=== PATIENT | male | born 1995 | race Hispanic/Latino ===

== ENCOUNTER 2018-03-06 05:00 | Emergency (ER) | payer BC, OTHER ==
[2018-03-06] MEDS ORDERED: METHYLPREDNISOLONE 125 MG INJ ONE (05:22)
--- NOTE | 2018-03-06 05:25 | EDPHYS ---
Physician Documentation [facility] Name: Clarence Chaudhary Age: 22 yrs Sex: Male : 1995 Arrival Date: 03/06/2018 Time: 05:03 Bed 14 Private MD: Fredo Lemus ED Physician Louie Burnham HPI: 03/06 05:20 This 22 yrs old Male presents to ER via Unassigned with complaints of Allergic rn Reaction. 05:20 The patient presents with localized swelling. Onset: The symptoms/episode rn began/occurred yesterday. Associated signs and symptoms: Pertinent positives: swelling, Pertinent negatives: abdominal pain, Altered mental status chest pain, dysphagia, hives, shortness of breath, vomiting. Possible causes: hair dye. Severity of symptoms: At their worst the symptoms were moderate in the emergency department the symptoms are unchanged. The patient has not experienced similar symptoms in the past. Reports used hair dye on Tuesday, began itching and then yesterday noticed swelling of both eyes, no sob/trouble swallowing/abd pain. Has had localized itching to hair dye before but never swelling like this. No other new exposure.. Historical: - Allergies: 05:14 No Known Drug Allergies; jb4 - Home Meds: 05:14 None [Active]; jb4 - PMHx: 05:14 None; jb4 - PSHx: 05:14 None; jb4 - Immunization history:: Adult Immunizations up to date, Flu vaccine is up to date. - Social history:: Smoking status: Patient/guardian denies using tobacco, Patient uses alcohol, only on a social basis. - Family history:: not pertinent. - Ebola Screening: : No symptoms or risks identified at this time. - Hospitalizations: : No recent hospitalization is reported. 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 Exam: 05:20 Constitutional: This is a well developed, well nourished patient who is awake, alert, rn and in no acute distress. Head/Face: atraumatic. Eyes: + bilateral periorbital swelling, no erythema, no warmth, no lesions ENT: MMM, no stridor Cardiovascular: Regular rate and rhythm with a normal S1 and S2. No gallops, murmurs, or rubs. Normal PMI, no JVD. No pulse deficits. Respiratory: Lungs have equal breath sounds bilaterally, clear to auscultation and percussion. No rales, rhonchi or wheezes noted. No increased work of breathing, no retractions or nasal flaring. Skin: Warm, dry with normal turgor. Normal color with no rashes, no lesions, and no evidence of cellulitis. MS/ Extremity: Pulses equal, no cyanosis. Neurovascular intact. Full, normal range of motion. Equal circumference. Neuro: Awake and alert, GCS 15, oriented to person, place, time, and situation. Cranial nerves II-XII grossly intact. Motor strength 5/5 in all extremities. Sensory grossly intact. Cerebellar exam normal. Normal gait. Vital Signs: 05:14 BP 137 / 94; Pulse 67; Resp 18; Temp 98.2; Pulse Ox 98% on R/A; Weight 93.44 kg (R); jb4 Height 5 ft. 6 in. (167.64 cm) (R); 05:14 Body Mass Index 33.25 (93.44 kg, 167.64 cm) jb4 MDM: 05:05 Patient medically screened. rn 05:20 Differential diagnosis: angioedema, local allergic reaction. Data reviewed: vital rn signs, nurses notes, and as a result, I will discharge patient. Counseling: I had a detailed discussion with the patient and/or guardian regarding: the historical points, exam findings, and any diagnostic results supporting the discharge/admit diagnosis, the need for outpatient follow up, to return to the emergency department if symptoms worsen or persist or if there are any questions or concerns that arise at home. Response to treatment: the patient's symptoms have mildly improved after treatment. Special discussion: I discussed with the patient/guardian in detail that at this point there is no indication for admission to the hospital. It is understood, however, that if the symptoms persist or worsen the patient needs to return immediately for re-evaluation. Administered Medications: 05:22 Drug: SOLU-Medrol 125 mg Route: IM; Site: right gluteus; jb4 06:10 Follow up: Response: No adverse reaction; No change in condition jb4 05:43 Drug: Benadryl 50 mg Route: IM; Site: right deltoid; jb4 06:10 Follow up: Response: No adverse reaction; No change in condition jb4 Disposition: 03/06/18 05:24 Discharged to Home. Impression: Acute allergic reaction (to hair dye). - Condition is Stable. - Discharge Instructions: Angioedema. - Prescriptions for Prednisone 20 mg Oral Tablet - take 3 tablet by ORAL route once daily for 5 days; 15 tablet. - Medication Reconciliation Form, Thank You Letter, Antibiotic Education, Prescription Opioid Use form. - Work release form (03/06/18 08:13). bd - Follow up: Private Physician; When: As needed; Reason: Recheck today's complaints, Re-evaluation by your physician. - Problem is new. - Symptoms have improved. Signatures: Louie Burnham MD MD rn Bryson, James, RN RN jb4 Dirrim, Barbara bd Corrections: (The following items were deleted from the chart) 06:06 05:24 03/06/2018 05:24 Discharged to Home. Impression: Acute allergic reaction (to hair jb4 dye). Condition is Stable. Forms are Medication Reconciliation Form, Thank You Letter, Antibiotic Education, Prescription Opioid Use. Follow up: Private Physician; When: As needed; Reason: Recheck today's complaints, Re-evaluation by your physician. Problem is new. Symptoms have improved. rn
--- NOTE | 2018-03-06 05:25 | ER ---
Nurse's Notes [facility] Name: Clarence Chaudhary Age: 22 yrs Sex: Male : 1995 Arrival Date: 03/06/2018 Time: 05:03 Bed 14 Private MD: Fredo Lemus Diagnosis: Acute allergic reaction (to hair dye) Presentation: 03/06 05:14 Presenting complaint: Patient states: I dyed my hair on Tuesday, noticed it had started jb4 itching on Tuesday and now it has progressed to my eyes which are now swollen. Transition of care: patient was not received from another setting of care. Onset: The symptoms/episode began/occurred suddenly. 05:14 Method Of Arrival: Ambulatory jb4 05:14 Anaphylaxis evaluation, no signs or symptoms of anaphylaxis were noted. Onset of jb4 symptoms was March 06, 2018. Risk Assessment: Do you want to hurt yourself or someone else? Patient reports no desire to harm self or others. Initial Sepsis Screen: Does the patient meet any 2 criteria? No. Patient's initial sepsis screen is negative. Care prior to arrival: None. 05:14 Acuity: YEMI 3 jb4 06:06 Initial Sepsis Screen: Does the patient have a suspected source of infection? No. jb4 Patient's initial sepsis screen is negative. Triage Assessment: 05:14 General: Appears in no apparent distress. uncomfortable, Behavior is calm, cooperative. jb4 Pain: Denies pain. EENT: Eyes swollen. Neuro: Level of Consciousness is awake, alert, obeys commands, Oriented to person, place, time, situation. Cardiovascular: Patient's skin is warm and dry. Respiratory: Airway is patent Respiratory effort is even, unlabored, Respiratory pattern is regular, symmetrical, Breath sounds are clear bilaterally. GI: No signs and/or symptoms were reported involving the gastrointestinal system. : No signs and/or symptoms were reported regarding the genitourinary system. Derm: Skin is intact, Skin is pink, warm \T\ dry. rash noted to the upper back. Musculoskeletal: Circulation, motion, and sensation intact. Historical: - Allergies: 05:14 No Known Drug Allergies; jb4 - Home Meds: 05:14 None [Active]; jb4 - PMHx: 05:14 None; jb4 - PSHx: 05:14 None; jb4 - Immunization history:: Adult Immunizations up to date, Flu vaccine is up to date. - Social history:: Smoking status: Patient/guardian denies using tobacco, Patient uses alcohol, only on a social basis. - Family history:: not pertinent. - Ebola Screening: : No symptoms or risks identified at this time. - Hospitalizations: : No recent hospitalization is reported. Screenin:35 Abuse screen: Denies threats or abuse. Nutritional screening: No deficits noted. jb4 Tuberculosis screening: No symptoms or risk factors identified. Fall Risk None identified. Assessment: 05:35 General: see triage assessment . Respiratory: Airway is patent Respiratory effort is jb4 even, unlabored, Respiratory pattern is regular, symmetrical, Breath sounds are clear bilaterally. Vital Signs: 05:14 BP 137 / 94; Pulse 67; Resp 18; Temp 98.2; Pulse Ox 98% on R/A; Weight 93.44 kg (R); jb4 Height 5 ft. 6 in. (167.64 cm) (R); 05:14 Body Mass Index 33.25 (93.44 kg, 167.64 cm) jb4 ED Course: 05:03 Patient arrived in ED. es 05:03 Fredo Lemus MD is Private Physician. es 05:05 Louie Burnham MD is Attending Physician. rn 05:13 Fredo Sanchez RN is Primary Nurse. jb4 05:14 Arm band placed on right wrist. jb4 05:28 Triage completed. jb4 05:35 Patient has correct armband on for positive identification. Placed in gown. Bed in low jb4 position. Call light in reach. Side rails up X 1. Pulse ox on. NIBP on. 05:35 No provider procedures requiring assistance completed. Patient did not have IV access jb4 during this emergency room visit. Administered Medications: 05:22 Drug: SOLU-Medrol 125 mg Route: IM; Site: right gluteus; jb4 06:10 Follow up: Response: No adverse reaction; No change in condition jb4 05:43 Drug: Benadryl 50 mg Route: IM; Site: right deltoid; jb4 06:10 Follow up: Response: No adverse reaction; No change in condition jb4 Outcome: 05:24 Discharge ordered by . rn 06:06 Discharged to home ambulatory. jb4 06:06 Condition: stable 06:06 Discharge instructions given to patient, Instructed on discharge instructions, follow up and referral plans. medication usage, Demonstrated understanding of instructions, follow-up care, medications, Prescriptions given X 1. 06:06 Patient left the ED. jb4 Signatures: Laurie Casper Roman, MD MD rn Bryson, James, RN RN jb4
[2018-03-06] MEDS ORDERED: DIPHENHYDRAMINE 50 MG/ML VIAL ONE (05:35)
== END 2018-03-06 06:06 | disposition home or self-care (01) ==
LOC: ER 05:00
DX: L23.4 Allergic contact dermatitis due to dyes (principal)
CPT/HCPCS: 96372; 99283; J2930

== ENCOUNTER 2018-12-28 08:57 | Emergency (ER) | payer BC, SELFPAY ==
--- OUTSIDE RECORDS SUMMARY | 2018-12-28 08:59 | XMS REPORT ---
:1995 [facility] Address [address] [place] [address] Dr. Antonio [address] [place] [id number] Care Team Providers Name Role Phone Unavailable Unavailable Unavailable Problems This patient has no known problems. Allergies, Adverse Reactions, Alerts This patient has no known allergies or adverse reactions. Medications This patient has no known medications.
--- NOTE | 2018-12-28 10:28 | ER ---
Nurse's Notes [facility] Name: Clarence Chaudhary Age: 23 yrs Sex: Male : 1995 Arrival Date: 12/28/2018 Time: 08:58 Bed 18 Private MD: Diagnosis: Acute pharyngitis;Otitis media, unspecified, left ear Presentation: 12/28 09:20 Presenting complaint: Patient states: sore throat X 2 weeks, left tonsil swollen, left iw ear pain, fever last night, vomited last night. Transition of care: patient was not received from another setting of care. Onset of symptoms was December 14, 2018. Risk Assessment: Do you want to hurt yourself or someone else? Patient reports no desire to harm self or others. Initial Sepsis Screen: Does the patient meet any 2 criteria? No. Patient's initial sepsis screen is negative. Does the patient have a suspected source of infection? No. Patient's initial sepsis screen is negative. Care prior to arrival: None. 09:20 Method Of Arrival: Ambulatory iw 09:20 Acuity: YEMI 4 iw Historical: - Allergies: 09:26 No Known Allergies; iw - Home Meds: 09:26 None [Active]; iw - PMHx: 09:26 None; iw - PSHx: 09:26 None; iw - Immunization history:: Adult Immunizations not up to date. - Social history:: Smoking status: Patient uses tobacco products, smokes one-half pack cigarettes per day. - Ebola Screening: : Patient negative for fever greater than or equal to 101.5 degrees Fahrenheit, and additional compatible Ebola Virus Disease symptoms Patient denies exposure to infectious person Patient denies travel to an Ebola-affected area in the 21 days before illness onset No symptoms or risks identified at this time. Screenin:49 Abuse screen: Denies threats or abuse. Denies injuries from another. Nutritional ph screening: No deficits noted. Tuberculosis screening: No symptoms or risk factors identified. Fall Risk None identified. Assessment: 09:46 General: Appears in no apparent distress. uncomfortable, well groomed, Behavior is ph calm, cooperative, appropriate for age, Reports fever for 12-24 hours. Pain: Complains of pain in throat. Neuro: Level of Consciousness is awake, alert, obeys commands, Oriented to person, place, time, situation. Cardiovascular: Capillary refill < 3 seconds in bilateral fingers Patient's skin is warm and dry. Respiratory: Airway is patent Respiratory effort is even, unlabored, Respiratory pattern is regular, symmetrical, Breath sounds are clear bilaterally. GI: Reports nausea, vomiting, Patient currently denies abdominal pain. EENT: Throat is reddened has enlarged tonsils on left Reports pain when swallowing. Derm: Skin is intact, is healthy with good turgor, Skin is pink, warm \T\ dry. Musculoskeletal: Circulation, motion, and sensation intact. Range of motion: intact in all extremities. 11:00 Reassessment: Patient appears in no apparent distress at this time. Patient and/or ph family updated on plan of care and expected duration. Pain level reassessed. Patient is alert, oriented x 3, equal unlabored respirations, skin warm/dry/pink. Pt d/c home w/ SO. Vital Signs: 09:27 BP 118 / 93; Pulse 104; Resp 18 S; Temp 99.1(TE); Pulse Ox 100% on R/A; Weight 91.17 kg iw (M); Height 5 ft. 6 in. (167.64 cm); Pain 7/10; 11:00 BP 123 / 86; Pulse 100; Resp 18; Temp 98.7; Pulse Ox 99% on R/A; ph 09:27 Body Mass Index 32.44 (91.17 kg, 167.64 cm) iw ED Course: 08:58 Patient arrived in ED. as 09:19 Everett Funes NP is PHCP. pm1 09:19 Walker Lugo MD is Attending Physician. pm1 09:24 Triage completed. iw 09:27 Arm band placed on. iw 09:30 Lilliam Jarvis, JEAN-CLAUDE is Primary Nurse. ph 09:50 No provider procedures requiring assistance completed. Patient did not have IV access ph during this emergency room visit. 09:50 Strep swab sent to lab. ph 09:51 Patient has correct armband on for positive identification. Bed in low position. Call ph light in reach. Side rails up X 1. Administered Medications: 10:48 Drug: Decadron 10 mg Route: IM; Site: right deltoid; ph 11:00 Follow up: Response: No adverse reaction ph Outcome: 10:27 Discharge ordered by . pm1 11:01 Discharged to home ambulatory, with significant other. ph 11:01 Condition: good 11:01 Discharge instructions given to patient, significant other, Instructed on discharge instructions, follow up and referral plans. medication usage, Demonstrated understanding of instructions, follow-up care, medications, Prescriptions given X 1. 11:01 Patient left the ED. ph Signatures: Padma Colbert Irene, RN RN Lilliam Jarvis RN RN ph Everett Funes, LINSEED OIL BOILER LINSEED OIL BOILER pm1
--- NOTE | 2018-12-28 10:28 | EDPHYS ---
Physician Documentation [facility] Name: Clarence Chaudhary Age: 23 yrs Sex: Male : 1995 Arrival Date: 12/28/2018 Time: 08:58 Bed 18 Private MD: ED Physician Walker Lugo HPI: 12/28 10:25 This 23 yrs old Male presents to ER via Ambulatory with complaints of Sore pm1 Throat, Fever, Ear Pain. 10:25 The patient presents with sore throat. The patient describes throat pain as constant, pm1 scratchy. Onset: The symptoms/episode began/occurred 2 week(s) ago. Severity of symptoms: in the emergency department the symptoms are unchanged. Modifying factors: The symptoms are alleviated by nothing, the symptoms are aggravated by foods, swallowing, Patient's oral intake status: good. Associated signs and symptoms: Pertinent positives: fever, left ear pain, Pertinent negatives cough, earache, flu-like symptoms, headache. The patient has not recently seen a physician. Historical: - Allergies: 09:26 No Known Allergies; iw - Home Meds: 09:26 None [Active]; iw - PMHx: 09:26 None; iw - PSHx: 09:26 None; iw - Immunization history:: Adult Immunizations not up to date. - Social history:: Smoking status: Patient uses tobacco products, smokes one-half pack cigarettes per day. - Ebola Screening: : Patient negative for fever greater than or equal to 101.5 degrees Fahrenheit, and additional compatible Ebola Virus Disease symptoms Patient denies exposure to infectious person Patient denies travel to an Ebola-affected area in the 21 days before illness onset No symptoms or risks identified at this time. ROS: 10:25 Eyes: Negative for injury, pain, redness, and discharge, Neck: Negative for injury, pm1 pain, and swelling, Cardiovascular: Negative for chest pain, palpitations, and edema. 10:25 Respiratory: Negative for shortness of breath, cough, wheezing, and pleuritic chest pain, Abdomen/GI: Negative for abdominal pain, nausea, vomiting, diarrhea, and constipation, Back: Negative for injury and pain, : Negative for injury, bleeding, discharge, and swelling, MS/Extremity: Negative for injury and deformity, Skin: Negative for injury, rash, and discoloration, Neuro: Negative for headache, weakness, numbness, tingling, and seizure. 10:25 Constitutional: Positive for fever, Negative for body aches, poor PO intake. 10:25 ENT: Positive for ear pain, sore throat, Negative for drainage from ear(s). Exam: 10:25 Constitutional: This is a well developed, well nourished patient who is awake, alert, pm1 and in no acute distress. Head/Face: Normocephalic, atraumatic. 10:25 Neck: Trachea midline, no thyromegaly or masses palpated, and no cervical lymphadenopathy. Supple, full range of motion without nuchal rigidity, or vertebral point tenderness. No Meningismus. Chest/axilla: Normal chest wall appearance and motion. Nontender with no deformity. No lesions are appreciated. Cardiovascular: Regular rate and rhythm with a normal S1 and S2. No gallops, murmurs, or rubs. Normal PMI, no JVD. No pulse deficits. Respiratory: Lungs have equal breath sounds bilaterally, clear to auscultation and percussion. No rales, rhonchi or wheezes noted. No increased work of breathing, no retractions or nasal flaring. Abdomen/GI: Soft, non-tender, with normal bowel sounds. No distension or tympany. No guarding or rebound. No evidence of tenderness throughout. Back: No spinal tenderness. No costovertebral tenderness. Full range of motion. Skin: Warm, dry with normal turgor. Normal color with no rashes, no lesions, and no evidence of cellulitis. MS/ Extremity: Pulses equal, no cyanosis. Neurovascular intact. Full, normal range of motion. 10:25 ENT: External ear(s): are unremarkable, Ear canal(s): are normal, TM's: erythema, that is mild, on the left, Examination of the other ear shows no obvious abnormality, Nose: is normal, Mouth: is normal, no gum abnomalities, no lip abnormalities, no mucosal abnormalities, no tongue abnormalities, Posterior pharynx: is normal, airway is patent, peritonsillar mass, is not appreciated. 10:25 Neuro: Orientation: is normal, Motor: is normal, moves all fours. Vital Signs: 09:27 BP 118 / 93; Pulse 104; Resp 18 S; Temp 99.1(TE); Pulse Ox 100% on R/A; Weight 91.17 kg iw (M); Height 5 ft. 6 in. (167.64 cm); Pain 7/10; 11:00 BP 123 / 86; Pulse 100; Resp 18; Temp 98.7; Pulse Ox 99% on R/A; ph 09:27 Body Mass Index 32.44 (91.17 kg, 167.64 cm) iw MDM: 09:27 Patient medically screened. pm1 10:25 Data reviewed: vital signs. Data interpreted: Pulse oximetry: on room air is 100 %. pm1 Interpretation: normal. Counseling: I had a detailed discussion with the patient and/or guardian regarding: the historical points, exam findings, and any diagnostic results supporting the discharge/admit diagnosis, lab results, the need for outpatient follow up, to return to the emergency department if symptoms worsen or persist or if there are any questions or concerns that arise at home. 12/28 09:27 Order name: Strep; Complete Time: 10:08 pm1 12/28 10:05 Order name: Throat Culture EDMS Administered Medications: 10:48 Drug: Decadron 10 mg Route: IM; Site: right deltoid; ph 11:00 Follow up: Response: No adverse reaction ph Disposition: 12/28/18 10:27 Discharged to Home. Impression: Acute pharyngitis, Otitis media, unspecified, left ear. - Condition is Stable. - Discharge Instructions: Otitis Media, Adult, Pharyngitis. - Prescriptions for Amoxicillin 500 mg Oral Capsule - take 1 capsule by ORAL route every 8 hours for 10 days; 30 tablet. - Medication Reconciliation Form, Thank You Letter, Antibiotic Education, Prescription Opioid Use form. - Follow up: Emergency Department; When: As needed; Reason: Worsening of condition. Follow up: Private Physician; When: 2 - 3 days; Reason: Recheck today's complaints, Continuance of care, Re-evaluation by your physician. - Problem is new. - Symptoms have improved. Addendum: 12/30/2018 07:29 Co-signature as Attending Physician, Walker Lugo MD. g s Signatures: Dispatcher [employer] EDHI Stephany Stephens RN RN Lilliam Jarvis RN RN ph Everett Funes, INSPECTOR MATERIALS AND PROCESSES INSPECTOR MATERIALS AND PROCESSES pm1 Walker Lugo MD MD Corrections: (The following items were deleted from the chart) 12/28 11:01 10:27 12/28/2018 10:27 Discharged to Home. Impression: Acute pharyngitis; Otitis media, ph unspecified, left ear. Condition is Stable. Forms are Medication Reconciliation Form, Thank You Letter, Antibiotic Education, Prescription Opioid Use. Follow up: Emergency Department; When: As needed; Reason: Worsening of condition. Follow up: Private Physician; When: 2 - 3 days; Reason: Recheck today's complaints, Continuance of care, Re-evaluation by your physician. Problem is new. Symptoms have improved. pm1
[2018-12-28] MEDS ORDERED: dexAMETHasone 10 MG/ML VIAL ONE (11:00)
== END 2018-12-28 11:01 | disposition home or self-care (01) ==
LOC: ER 08:57
DX: J02.9 Acute pharyngitis, unspecified (principal); H66.92 Otitis media, unspecified, left ear; F17.210 Nicotine dependence, cigarettes, uncomplicated
CPT/HCPCS: 87070; 87081; 96372; 99283; J1100

== ENCOUNTER 2019-03-04 01:13 | Emergency (ER) | payer SELFPAY ==
--- OUTSIDE RECORDS SUMMARY | 2019-03-04 01:15 | XMS REPORT ---
:1995 [facility] Address [address] [place] [address] Dr. Antonio [address] [place] [id number] Care Team Providers Name Role Phone Unavailable Unavailable Unavailable Problems This patient has no known problems. Allergies, Adverse Reactions, Alerts This patient has no known allergies or adverse reactions. Medications This patient has no known medications.
[2019-03-04] MEDS ORDERED: ONDANSETRON 4 MG/2 ML VIAL ONE (02:27)
[2019-03-04] MEDS ORDERED: KETOROLAC 30 MG/ML INJ ONE (02:27)
[2019-03-04 02:56] LABS: Absolute Lymphocytes (CBC) 3.7 K/uL (0.7-4.9); Basophils % 0.6 % (0-1.3); Hematocrit 47.7 % (39.6-49.0); Lymphocytes % 30.4 % (15.3-44.8); MPV 8.3 fL (7.6-11.3); RBC Red Blood Cell Count 5.59 M/uL (4.33-5.43)
[2019-03-04 03:05] LABS: Calcium Oxalate Crystals- Ur FEW (NONE SEEN); Urine Bacteria LOADED /HPF (NONE SEEN); Urine Culture Reflex Order REFLEXED; Urine RBC 20-50 /HPF (NONE SEEN)
[2019-03-04 03:06] LABS: Albumin 4.3 g/dL (3.4-5.0); Bilirubin Direct 0.2 mg/dL (0-0.2); Bilirubin Total 0.6 mg/dL (0.2-1.0); Potassium 4.1 mmol/L (3.5-5.1); Protein, Total 7.9 g/dL (6.4-8.2)
[2019-03-04 04:26] LABS: Urine Blood 3+ (NEG); Urine Glucose NEGATIVE (NEG); Urine Protein 2+ (NEG); Urine Specific Gravity >1.030 (1.005-1.030); Urine pH 5.5 (5.0-7.0)
--- NOTE | 2019-03-04 04:42 | ER ---
Nurse's Notes [facility] Name: Clarence Chaudhary Age: 23 yrs Sex: Male : 1995 Arrival Date: 03/04/2019 Time: 01:16 Bed 8 Private MD: Diagnosis: acute left flank pain;acute left distal ureterolithiasis Presentation: 03/04 01:50 Presenting complaint: Patient states: that he is having left sided back pain that fc radiates around to left lower abd. Has urinary freq. Hx of kidney stones. Transition of care: patient was not received from another setting of care. Onset of symptoms was March 03, 2019. Risk Assessment: Do you want to hurt yourself or someone else? Patient reports no desire to harm self or others. Initial Sepsis Screen: Does the patient meet any 2 criteria? No. Patient's initial sepsis screen is negative. Does the patient have a suspected source of infection? No. Patient's initial sepsis screen is negative. Care prior to arrival: Medication(s) given: Tylenol, last at 0030. 01:50 Method Of Arrival: Ambulatory fc 01:50 Acuity: YEMI 3 fc Historical: - Allergies: 02:02 No Known Allergies; fc - Home Meds: 02:02 None [Active]; fc - PMHx: 02:02 Kidney stones; fc - PSHx: 02:02 None; fc - Immunization history:: Last tetanus immunization: up to date. - Social history:: Smoking status: Patient/guardian denies using tobacco, Patient/guardian denies using alcohol, street drugs. - Ebola Screening: : Patient negative for fever greater than or equal to 101.5 degrees Fahrenheit, and additional compatible Ebola Virus Disease symptoms Patient denies exposure to infectious person Patient denies travel to an Ebola-affected area in the 21 days before illness onset. - Family history:: not pertinent. - Hospitalizations: : No recent hospitalization is reported. Screenin:50 Abuse screen: Denies threats or abuse. Nutritional screening: No deficits noted. fc Tuberculosis screening: No symptoms or risk factors identified. Fall Risk None identified. Assessment: 02:19 General: Appears in no apparent distress. uncomfortable, Behavior is calm, cooperative, jb4 appropriate for age. Pain: Complains of pain in left low back Pain does not radiate. Pain currently is 8 out of 10 on a pain scale. Quality of pain is described as. Neuro: Level of Consciousness is awake, alert, obeys commands, Oriented to person, place, time, situation. Cardiovascular: Patient's skin is warm and dry. Respiratory: Airway is patent Respiratory effort is even, unlabored, Respiratory pattern is regular, symmetrical. GI: No deficits noted. No signs and/or symptoms were reported involving the gastrointestinal system. : Reports pain in left in lower back. EENT: No deficits noted. No signs and/or symptoms were reported regarding the EENT system. Derm: Skin is intact, Skin is pink, warm \T\ dry. Musculoskeletal: Circulation, motion, and sensation intact. Range of motion: intact in all extremities. 03:30 Reassessment: Patient appears in no apparent distress at this time. Patient and/or jb4 family updated on plan of care and expected duration. Pain level reassessed. Patient is alert, oriented x 3, equal unlabored respirations, skin warm/dry/pink. Patient states feeling better. 04:51 Reassessment: Patient appears in no apparent distress at this time. Patient and/or jb4 family updated on plan of care and expected duration. Pain level reassessed. Patient is alert, oriented x 3, equal unlabored respirations, skin warm/dry/pink. PT verbalized understanding of d/c and follow up instructions, ambulated out of ED with steady gait. Vital Signs: 01:50 BP 137 / 95; Pulse 67; Resp 18; Temp 97.9(O); Pulse Ox 99% on R/A; Weight 90.72 kg (R); Height 5 ft. 6 in. (167.64 cm) (R); Pain 8/10; 02:30 BP 145 / 70; Pulse 55; Resp 16; Pulse Ox 100% on R/A; ak1 03:00 BP 121 / 83; Pulse 51; Resp 16; Pulse Ox 98% on R/A; ak1 04:18 BP 128 / 77; Pulse 48; Resp 16; Pulse Ox 99% on R/A; ak1 01:50 Body Mass Index 32.28 (90.72 kg, 167.64 cm) ED Course: 01:16 Patient arrived in ED. ds1 01:50 Arm band placed on Patient placed in an exam room, on a stretcher. fc 01:50 Patient has correct armband on for positive identification. Bed in low position. Call light in reach. Pulse ox on. NIBP on. 01:50 No provider procedures requiring assistance completed. 02:00 Triage completed. 02:04 Lasha Grimm MD is Attending Physician. nh 02:16 Penny Neumann, RN is Primary Nurse. ak1 02:28 Initial lab(s) drawn, by nc, sent to lab. Urine collected: clean catch specimen, tea ak1 colored. Inserted saline lock: 20 gauge in right antecubital area, using aseptic technique. Blood collected. 03:06 CT Abd/Pelvis - Without Contrast In Process Unspecified. EDMS 04:36 Cam Javier MD is Referral Physician. nh Administered Medications: 02:31 Drug: Zofran 4 mg Route: IVP; Site: right antecubital; jb4 03:00 Follow up: Response: No adverse reaction; Nausea is decreased jb4 02:33 Drug: TORadol 30 mg Route: IVP; Site: right antecubital; jb4 03:00 Follow up: Response: No adverse reaction; Pain is decreased jb4 Outcome: 04:38 Discharge ordered by . nh 04:52 Patient left the ED. jb4 Signatures: Dispatcher [employer] EDPA Martha Poole RN RN fc Sanford, Demi ds1 Penny Neumann RN RN akFredo Fairbanks RN RN jb4 Lasha Grimm MD MD wa
--- NOTE | 2019-03-04 04:42 | EDPHYS ---
Physician Documentation [facility] Name: Clarence Chaudhary Age: 23 yrs Sex: Male : 1995 Arrival Date: 03/04/2019 Time: 01:16 Bed 8 Private MD: ED Physician Lasha Grimm HPI: 03/04 04:42 This 23 yrs old Male presents to ER via Ambulatory with complaints of Kidney wa Pain. 04:42 The patient complains of pain in the left flank. The pain does not radiate. Onset: The wa symptoms/episode began/occurred 1 day(s) ago. Modifying factors: The symptoms are alleviated by nothing. the symptoms are aggravated by nothing. Associated signs and symptoms: The patient has no apparent associated signs or symptoms. Severity of pain: At its worst the pain was moderate in the emergency department the pain is unchanged. The patient has experienced a previous episode, approximately 2 years ago. The patient has not recently seen a physician. c/o L flank pain. denies nausea or vomiting. h/o kidney stones. Historical: - Allergies: 02:02 No Known Allergies; fc - Home Meds: 02:02 None [Active]; fc - PMHx: 02:02 Kidney stones; fc - PSHx: 02:02 None; fc - Immunization history:: Last tetanus immunization: up to date. - Social history:: Smoking status: Patient/guardian denies using tobacco, Patient/guardian denies using alcohol, street drugs. - Ebola Screening: : Patient negative for fever greater than or equal to 101.5 degrees Fahrenheit, and additional compatible Ebola Virus Disease symptoms Patient denies exposure to infectious person Patient denies travel to an Ebola-affected area in the 21 days before illness onset. - Family history:: not pertinent. - Hospitalizations: : No recent hospitalization is reported. ROS: 04:44 Constitutional: Negative for fever, chills, and weight loss, Eyes: Negative for injury, wa pain, redness, and discharge, ENT: Negative for injury, pain, and discharge, Neck: Negative for injury, pain, and swelling, Cardiovascular: Negative for chest pain, palpitations, and edema, Respiratory: Negative for shortness of breath, cough, wheezing, and pleuritic chest pain, Back: Negative for injury and pain, : Negative for injury, bleeding, discharge, and swelling, MS/Extremity: Negative for injury and deformity, Skin: Negative for injury, rash, and discoloration, Neuro: Negative for headache, weakness, numbness, tingling, and seizure, Psych: Negative for depression, anxiety, suicide ideation, homicidal ideation, and hallucinations. 04:44 Abdomen/GI: Positive for abdominal pain, of the left flank. 04:44 All other systems are negative. Exam: 04:44 Constitutional: This is a well developed, well nourished patient who is awake, alert, wa and in no acute distress. Head/Face: Normocephalic, atraumatic. Eyes: Pupils equal round and reactive to light, extra-ocular motions intact. Lids and lashes normal. Conjunctiva and sclera are non-icteric and not injected. Cornea within normal limits. Periorbital areas with no swelling, redness, or edema. ENT: Nares patent. No nasal discharge, no septal abnormalities noted. Tympanic membranes are normal and external auditory canals are clear. Oropharynx with no redness, swelling, or masses, exudates, or evidence of obstruction, uvula midline. Mucous membranes moist. Neck: Trachea midline, no thyromegaly or masses palpated, and no cervical lymphadenopathy. Supple, full range of motion without nuchal rigidity, or vertebral point tenderness. No Meningismus. Chest/axilla: Normal chest wall appearance and motion. Nontender with no deformity. No lesions are appreciated. Cardiovascular: Regular rate and rhythm with a normal S1 and S2. No gallops, murmurs, or rubs. Normal PMI, no JVD. No pulse deficits. Respiratory: Lungs have equal breath sounds bilaterally, clear to auscultation and percussion. No rales, rhonchi or wheezes noted. No increased work of breathing, no retractions or nasal flaring. Back: No spinal tenderness. No costovertebral tenderness. Full range of motion. Male : Normal genitalia with no discharge or lesions. Skin: Warm, dry with normal turgor. Normal color with no rashes, no lesions, and no evidence of cellulitis. MS/ Extremity: Pulses equal, no cyanosis. Neurovascular intact. Full, normal range of motion. Neuro: Awake and alert, GCS 15, oriented to person, place, time, and situation. Cranial nerves II-XII grossly intact. Motor strength 5/5 in all extremities. Sensory grossly intact. Cerebellar exam normal. Normal gait. Psych: Awake, alert, with orientation to person, place and time. Behavior, mood, and affect are within normal limits. 04:44 Abdomen/GI: Inspection: abdomen appears normal, Bowel sounds: normal, in all quadrants, Palpation: abdomen is soft and non-tender, in all quadrants. Vital Signs: 01:50 BP 137 / 95; Pulse 67; Resp 18; Temp 97.9(O); Pulse Ox 99% on R/A; Weight 90.72 kg (R); fc Height 5 ft. 6 in. (167.64 cm) (R); Pain 8/10; 02:30 BP 145 / 70; Pulse 55; Resp 16; Pulse Ox 100% on R/A; ak1 03:00 BP 121 / 83; Pulse 51; Resp 16; Pulse Ox 98% on R/A; ak1 04:18 BP 128 / 77; Pulse 48; Resp 16; Pulse Ox 99% on R/A; ak1 01:50 Body Mass Index 32.28 (90.72 kg, 167.64 cm) fc MDM: 02:04 Patient medically screened. mn 04:47 Differential diagnosis: nephrolithiasis, pyelonephritis, UTI, testicular torsion, wa pancreatitis. Data reviewed: vital signs, nurses notes, lab test result(s), radiologic studies. Test interpretation: by ED physician or midlevel provider: UA noted for blood cells. 04:48 Test interpretation: by ED physician or midlevel provider: CT abd/pelvis: noted for 2 wa mm L UVJ stone. Response to treatment: the patient's symptoms have markedly improved after treatment. ED course: improved with toradol. d/c'd with meds and f/u with urology. 08:07 Test interpretation: by ED physician or midlevel provider: labs noted for renal insuff wa with BUN 24 and CR 1.68. leukocytosis at 12.3. UA noted for 5-10 wbc's per HPF. 03/04 02:11 Order name: Basic Metabolic Panel; Complete Time: 08:03/04 02:11 Order name: CBC with Diff; Complete Time: 08:03/04 02:11 Order name: Hepatic Function; Complete Time: 08:03/04 02:11 Order name: Lipase; Complete Time: 04:30 mn 03/04 02:11 Order name: Urine Microscopic Only; Complete Time: 08:05 mn 03/04 03:07 Order name: Urine Culture [facility] 03/04 02:11 Order name: IV Saline Lock; Complete Time: 02:25 mn 03/04 02:11 Order name: Labs collected and sent; Complete Time: 02:26 mn 03/04 02:11 Order name: Urine Dipstick-Ancillary (obtain specimen); Complete Time: 02:16 mn 03/04 02:12 Order name: CT Abd/Pelvis - Without Contrast mn 03/04 04:10 Order name: Urine Dipstick--Ancillary (enter results); Complete Time: 04:30 ar5 Administered Medications: 02:31 Drug: Zofran 4 mg Route: IVP; Site: right antecubital; jb4 03:00 Follow up: Response: No adverse reaction; Nausea is decreased jb4 02:33 Drug: TORadol 30 mg Route: IVP; Site: right antecubital; jb4 03:00 Follow up: Response: No adverse reaction; Pain is decreased jb4 Disposition: 03/04/19 04:38 Discharged to Home. Impression: acute left flank pain, acute left distal ureterolithiasis. - Condition is Stable. - Discharge Instructions: Kidney Stones, [id number]. - Prescriptions for ketorolac 10 mg Oral tablet - take 1 tablet by ORAL route every 8 hours not to exceed 40 mg in 24hrs; 15 tablet. Zofran 4 mg Oral Tablet - take 1 tablet by ORAL route every 12 hours As needed; 6 tablet. - Work release form, Medication Reconciliation Form, Thank You Letter, Antibiotic Education, Prescription Opioid Use form. - Follow up: Cam Javier MD; When: 2 - 3 days; Reason: Recheck today's complaints. - Problem is new. - Symptoms have improved. - Notes: follow up with the urologist as discussed if pain persists. Signatures: Dispatcher [employer] [facility] Martha Poole RN RN Fredo Diaz RN RN jb4 Lasha Grimm MD MD mn Corrections: (The following items were deleted from the chart) 04:52 04:38 03/04/2019 04:38 Discharged to Home. Impression: acute left flank pain; acute jb4 left distal ureterolithiasis. Condition is Stable. Forms are Medication Reconciliation Form, Thank You Letter, Antibiotic Education, Prescription Opioid Use. Follow up: Cam Javier; When: 2 - 3 days; Reason: Recheck today's complaints. Problem is new. Symptoms have improved. lily
[2019-03-04 05:08] VITALS: TEMP 97.9
[2019-03-04 05:12] VITALS: BP 128/77; O2SAT 99
--- NOTE | 2019-03-05 10:53 | RAD REPORT ---
EXAM DESCRIPTION: CT - Abdomen Pelvis Wo Contrast - 03/04/2019 4:26 am CLINICAL HISTORY: FLANK PAIN COMPARISON: None. TECHNIQUE: CT ABDOMEN PELVIS WITHOUT IV CONTRAST on 03/04/2019 2:12 AM CDT This exam was performed according to our departmental dose-optimization program, which includes autom ated exposure control, adjustment of the mA and/or kV according to patient size and/or use of iterati ve reconstruction technique. FINDINGS: Lower lungs are clear. Abdomen: The liver is normal in appearance. There is no biliary dilatation. Gallbladder is normal in appearance. The pancreas and spleen are normal in appearance. Adrenal glands and right kidney are nor mal. There is mild left hydronephrosis secondary to a linear 2 mm left UVJ calculus. Abdominal aorta is normal in course and caliber without aneurysm. There is no free air. There is no r etroperitoneal adenopathy. Pelvis: There is no bowel obstruction. Urinary bladder is unremarkable. There is no free fluid. Appen ashlyn is normal. Skeleton: There are no acute osseous findings. No suspicious bony lesions. IMPRESSION: Mildly obstructing 2 mm linear left UVJ calculus. Electronically signed by: Vic Kent MD 03/04/2019 4:18 AM CDT Due to temporary technical issues with the PACS/Fluency reporting system, reports are being signed by the in house radiologist as a courtesy to ensure prompt reporting. The interpreting radiologist is f ully responsible for the content of the report.
== END 2019-03-04 04:52 | disposition home or self-care (01) ==
LOC: ER 01:13
DX: N20.1 Calculus of ureter (principal); Z87.442 Personal history of urinary calculi
CPT/HCPCS: 36415; 74176; 80048; 80076; 81003; 81015; 83690; 85025; 87086; 87088; 96374; 96375; 99284; J2405

== ENCOUNTER 2021-05-16 14:36 | Emergency (ER) | payer SELFPAY ==
[2021-05-16 14:57] LABS: Urine Blood Trace-intact (Negative); Urine Glucose Negative (Negative); Urine Protein Negative (Negative); Urine Specific Gravity 1.025 (1.005-1.030)
[2021-05-16] MEDS ORDERED: CEFTRIAXONE 500 MG/VIAL ONE (15:00)
--- NOTE | 2021-05-16 15:00 | EDPHYS ---
Physician Documentation [facility] Name: Clarence Chaudhary Age: 25 yrs Sex: Male : 1995 Arrival Date: 05/16/2021 Time: 14:39 Bed Waiting Private MD: ED Physician Louie Burnham HPI: 05/16 17:13 This 25 yrs old Male presents to ER via Ambulatory with complaints of Penile kb Discharge - W/Pain \\T\\ Burning. 17:13 The patient presents with a possible STD exposure, symptoms include dysuria, purulent kb penile discharge, urinary symptoms, dysuria. Onset: The symptoms/episode began/occurred this morning. Modifying factors: The symptoms are alleviated by nothing, the symptoms are aggravated by urinating. Associated signs and symptoms: Pertinent positives: dysuria, Pertinent negatives: abdominal pain, constipation, diarrhea, fever, hematuria, nausea, vomiting. Severity of symptoms: At their worst the symptoms were moderate, in the emergency department the symptoms are unchanged. The patient has experienced a previous episode. The patient has not recently seen a physician. Pt reports white penile discharge and dysuria that started today. STates "I've had chlamydia before so I knew what it was when it started.". Historical: - Allergies: 14:46 No Known Allergies; vg1 - Home Meds: 14:46 None [Active]; vg1 - PMHx: 14:46 Kidney stones; vg1 - PSHx: 14:46 None; vg1 - Immunization history:: Client reports receiving the 2nd dose of the Covid vaccine. - Social history:: Smoking status: Reported history of juuling and/or vaping. ROS: 17:13 Constitutional: Negative for fever, chills, and weight loss. kb 17:13 : Positive for burning with urination, penile discharge. 17:13 All other systems are negative. Exam: 17:13 Constitutional: This is a well developed, well nourished patient who is awake, alert, kb and in no acute distress. Head/Face: Normocephalic, atraumatic. ENT: Moist Mucous membranes Respiratory: Respirations even and unlabored. No increased work of breathing, no retractions or nasal flaring. Skin: Warm, dry with normal turgor. Normal color. MS/ Extremity: Pulses equal, no cyanosis. Neurovascular intact. Full, normal range of motion. Neuro: Awake and alert, GCS 15, oriented to person, place, time, and situation. Moves all extremities. Normal gait. Psych: Awake, alert, with orientation to person, place and time. Behavior, mood, and affect are within normal limits. Vital Signs: 14:44 BP 122 / 72; Pulse 78; Resp 16; Temp 98.0; Pulse Ox 100% ; Weight 77.11 kg; Height 5 vg1 ft. 6 in. (167.64 cm); Pain 3/10; 14:44 Body Mass Index 27.44 (77.11 kg, 167.64 cm) vg1 MDM: 14:58 Patient medically screened. kb 17:13 Data reviewed: vital signs, nurses notes. Data interpreted: Pulse oximetry: on room air kb is 100 %. Interpretation: normal. Counseling: I had a detailed discussion with the patient and/or guardian regarding: the historical points, exam findings, and any diagnostic results supporting the discharge/admit diagnosis, the need for outpatient follow up, a family practitioner, to return to the emergency department if symptoms worsen or persist or if there are any questions or concerns that arise at home. 05/16 14:56 Order name: Urine Dipstick-Ancillary; Complete Time: 14:59 EDMS 05/16 14:57 Order name: Urine Microscopic Only; Complete Time: 15:35 vg1 05/16 15:34 Order name: Urine Culture EDMS Administered Medications: 15:07 Drug: Zithromax (azithromycin) 1 grams Route: PO; vg1 15:36 Follow up: Response: No adverse reaction ss 15:07 Drug: Rocephin (cefTRIAXone) 500 mg Route: IM; Site: right gluteus; vg1 15:36 Follow up: Response: No adverse reaction ss Disposition: 17:58 Co-signature as Attending Physician, Louie Burnham MD I agree with the assessment and rn plan of care. Attestation: The patient's history, exam findings, diagnostics, and a summary of any interventions or procedures was reviewed in detail with Karen SERVIN. Disposition Summary: 05/16/21 14:59 Discharge Ordered Location: Home kb Condition: Stable kb Diagnosis - Unspecified sexually transmitted disease kb Followup: kb - With: Emergency Department - When: As needed - Reason: Worsening of condition Followup: kb - With: Private Physician - When: 2 - 3 days - Reason: Recheck today's complaints, Continuance of care, Re-evaluation by your physician Discharge Instructions: - Discharge Summary Sheet kb - Preventing Sexually Transmitted Infections, Adult kb Forms: - Medication Reconciliation Form kb - Thank You Letter kb - Antibiotic Education kb - Prescription Opioid Use kb Signatures: Dispatcher [employer] EDKaren Fermin, TRAILHEAD MAINTENANCE WORKER-C TRAILHEAD MAINTENANCE WORKER-Gerb Louie Burnham MD MD rn Garcia, Victoria, RN RN 1 Crissy Lara RN
--- NOTE | 2021-05-16 15:00 | ER ---
Nurse's Notes [facility] Name: Clarence Chaudhary Age: 25 yrs Sex: Male : 1995 Arrival Date: 05/16/2021 Time: 14:39 Bed Waiting Private MD: Diagnosis: Unspecified sexually transmitted disease Presentation: 05/16 14:44 Chief complaint: Patient states: Penile pain, discharge and pelvic pain x 2 days. vg1 Denies NVD. Coronavirus screen: Vaccine status: Patient reports receiving the 2nd dose of the covid vaccine. Client denies travel out of the [place] in the last 14 days. Ebola Screen: Patient negative for fever greater than or equal to 101.5 degrees Fahrenheit, and additional compatible Ebola Virus Disease symptoms. Initial Sepsis Screen: Does the patient meet any 2 criteria? No. Patient's initial sepsis screen is negative. Does the patient have a suspected source of infection? No. Patient's initial sepsis screen is negative. Risk Assessment: Do you want to hurt yourself or someone else? Patient reports no desire to harm self or others. Onset of symptoms was May 14, 2021. 14:44 Method Of Arrival: Ambulatory vg1 14:44 Acuity: YEMI 3 vg1 Triage Assessment: 14:46 General: Appears in no apparent distress. comfortable, Behavior is calm, cooperative. vg1 Pain: Complains of pain in pelvis. Historical: - Allergies: 14:46 No Known Allergies; vg1 - Home Meds: 14:46 None [Active]; vg1 - PMHx: 14:46 Kidney stones; vg1 - PSHx: 14:46 None; vg1 - Immunization history:: Client reports receiving the 2nd dose of the Covid vaccine. - Social history:: Smoking status: Reported history of juuling and/or vaping. Assessment: 15:35 Reassessment: Patient appears in no apparent distress at this time. Patient and/or ss family updated on plan of care and expected duration. Pain level reassessed. Patient is alert, oriented x 3, equal unlabored respirations, skin warm/dry/pink. Vital Signs: 14:44 BP 122 / 72; Pulse 78; Resp 16; Temp 98.0; Pulse Ox 100% ; Weight 77.11 kg; Height 5 vg1 ft. 6 in. (167.64 cm); Pain 3/10; 14:44 Body Mass Index 27.44 (77.11 kg, 167.64 cm) vg1 ED Course: 14:39 Patient arrived in ED. ds1 14:46 Triage completed. vg1 14:46 Arm band placed on. vg1 14:50 Karen Grover FNP-C is [facility]. kb 14:50 Louie Burnham MD is Attending Physician. kb 15:35 Crissy Lara, RN is Primary Nurse. ss 15:35 No provider procedures requiring assistance completed. Patient did not have IV access ss during this emergency room visit. Administered Medications: 15:07 Drug: Zithromax (azithromycin) 1 grams Route: PO; vg1 15:36 Follow up: Response: No adverse reaction ss 15:07 Drug: Rocephin (cefTRIAXone) 500 mg Route: IM; Site: right gluteus; vg1 15:36 Follow up: Response: No adverse reaction ss Outcome: 14:59 Discharge ordered by MD. kb 15:35 Discharged to home ambulatory. ss 15:35 Condition: good 15:35 Discharge instructions given to patient, Instructed on discharge instructions, follow up and referral plans. Demonstrated understanding of instructions, follow-up care. 15:36 Patient left the ED. ss Signatures: Karen Grover FNP-C FNP-Jacqueline Grant ds1 Crissy Lara, JEAN-CLAUDE BERMEO Ashley Hoyos RN RN vg1
[2021-05-16] MEDS ORDERED: AZITHROMYCIN 250 MG TAB ONE ×2 (15:01)
[2021-05-16] MEDS ORDERED: LIDOCAINE 1% MPF 2 ML AMPULE ONE (15:02)
[2021-05-16 15:32] LABS: Urine Amorphous Sediment 4+ /HPF (NONE SEEN); Urine Bacteria <20 /HPF (NONE SEEN); Urine RBC <5 /HPF (NONE SEEN)
[2021-05-16 16:55] VITALS: BP 122/72; TEMP 98; O2SAT 100
== END 2021-05-16 15:36 | disposition home or self-care (01) ==
LOC: ER 14:36
DX: A64 Unspecified sexually transmitted disease (principal)
CPT/HCPCS: 81003; 81015; 87086; 87088; 96372; 99283; J0696